=== PATIENT | female | born 1965 | race Caucasian/White ===

== ENCOUNTER 2020-04-18 08:40 | Emergency (ER) | payer BC ==
[~2020-04-18] VITALS: Ht 165.1 cm; Wt 76.7 kg
[2020-04-18] MEDS ORDERED: PROAIR HFA8.5 GM INH (08:57)
[2020-04-18] MEDS ORDERED: VENTOLIN HFA18 GM INH (08:57)
[2020-04-18] MEDS ORDERED: QVAR REDIHALE10.6 G1 (08:58)
[2020-04-18] MEDS ORDERED: PREDNISONE20 MG PO (10:17)
== END 2020-04-18 10:43 | disposition home or self-care (01) ==
LOC: ED 08:40
DX: J45.909 Unspecified asthma, uncomplicated (principal); Z88.2 Allergy status to sulfonamides
CPT/HCPCS: 94640; 99284-25; J1100

== ENCOUNTER 2020-07-26 21:37 | Emergency (ER) | payer BC, OTHER ==
[~2020-07-26] VITALS: Ht 165.1 cm; Wt 72.6 kg
[~2020-07-26 21:37] MED LIST: PREDNISONE20 MG PO; PROAIR HFA8.5 GM INH; QVAR REDIHALE10.6 G1; VENTOLIN HFA18 GM INH
[2020-07-26] MEDS ORDERED: CYCLOBENZAPRINE10 MG PO (23:41)
== END 2020-07-27 00:04 | disposition home or self-care (01) ==
LOC: ED 21:37
DX: M54.41 Lumbago with sciatica, right side (principal); J45.909 Unspecified asthma, uncomplicated; Z88.2 Allergy status to sulfonamides; Z79.52 Long term (current) use of systemic steroids
CPT/HCPCS: 99283; A9270